=== PATIENT | female | born 1975 | race Hispanic/Latino ===

== ENCOUNTER → 2021-05-16 | Outpatient (CLI) | payer OTHER | END | disposition home or self-care (01) | LOC: RAH 12:34 | PROVIDERS: ATTEND Family Medicine | DX: M54.5 Low back pain (principal); R06.02 Shortness of breath | CPT/HCPCS: 71046; 72110 ==

== ENCOUNTER 2022-01-14 02:05 | Observation (INO) | payer BC ==
[~2022-01-14] VITALS: Ht 154.9 cm; Wt 68.6 kg
[2022-01-14 03:55] VITALS: BP 165/95
[2022-01-14] MEDS ORDERED: METF-446 PO (04:17)
[2022-01-14] MEDS ORDERED: ONDANSETRON 4MG INJ IVP PRN (05:00)
[2022-01-14] MEDS ORDERED: HYDRALAZINE 25MG TABLET PO SCH ×2 (05:00→09:00)
[2022-01-14] MEDS ORDERED: ACETAMINOPHEN 325 MG TAB PO PRN (05:00)
[2022-01-14] MEDS ORDERED: HYDRALAZINE 25MG TABLET ONE (05:04)
[2022-01-14] MEDS ORDERED: ACETAMINOPHEN 325 MG TAB ONE (05:05)
[2022-01-14] MEDS ORDERED: MORPHINE 2 MG SYG ONE (05:13)
[2022-01-14] MEDS ORDERED: MORPHINE 2 MG SYG IVP PRN (05:30)
[2022-01-14] MEDS ORDERED: GLUCAGON 1MG KIT 1 MG ML IM PRN (05:30)
[2022-01-14] MEDS ORDERED: DEXTROSE 50%-WATER 50 ML DISP.SYRIN IV PRN (05:30)
[2022-01-14 05:38] LABS: BASOPHILS % (AUTO) 1.2 % (0.0-5.0); EOSINOPHILS % (AUTO) 6.1 % (0.0-8.0); HEMATOCRIT 35.8 % (36-48); LYMPHOCYTES % (AUTO) 42.1 % (21.0-51.0); MEAN CORPUSCULAR HEMOGLOBIN 27.2 pg (27.0-33.0); MEAN CORPUSCULAR HGB CONC 33.2 g/dL (32.0-36.0); MEAN CORPUSCULAR VOLUME 81.7 fL (79-99); MONOCYTES % (AUTO) 5.2 % (3.0-13.0); NEUTROPHILS % (AUTO) 45.1 % (40.0-77.0); PLATELET COUNT (AUTO) 244 K/uL (130-400); RED BLOOD CELL COUNT(AUTO) 4.38 MIL/uL (4.00-5.50); RED CELL DISTRIBUTION WIDTH 14.6 % (11.0-15.5); WHITE BLOOD COUNT (AUTO) 7.4 K/uL (4.8-10.8)
[2022-01-14 05:54] LABS: CREATININE 0.6 mg/dL (0.5-1.5); POTASSIUM 3.2 mmol/L (3.5-5.1)
[2022-01-14 06:07] LABS: ALBUMIN 3.5 g/dL (3.5-5.0); BILIRUBIN,TOTAL 0.2 mg/dL (0.2-1.0); THYROID STIMULATING HORMONE 4.82 uIU/mL (0.36-3.74); TOTAL PROTEIN, SERUM 7.5 g/dL (6.0-8.3)
[2022-01-14] MEDS ORDERED: INSULIN HUMULIN R 100 UNIT/ML 3ML SQ SCH (07:30)
[2022-01-14 08:00] VITALS: BP 159/93
[2022-01-14] MEDS ORDERED: LISINOPRIL 10 MG TABLET PO SCH (09:00)
[2022-01-14] MEDS ORDERED: LISI10TA24 PO (09:38)
[2022-01-14] MEDS ORDERED: HYDR-4153 PO (09:38)
[2022-01-14] MEDS ORDERED: POTASSIUM CHLORIDE 10% ELIXIR 20 MEQ/15 ML UDCUP PO SCH (10:00)
[2022-01-14 12:00] VITALS: BP 171/94
== END 2022-01-14 13:45 | disposition home or self-care (01) ==
LOC: 4DH 03:56
PROVIDERS: ADMIT Internal Medicine; ATTEND Internal Medicine
DX: I16.0 Hypertensive urgency (principal); E11.65 Type 2 diabetes mellitus with hyperglycemia; R51.9 Headache, unspecified; Z79.84 Long term (current) use of oral hypoglycemic drugs
CPT/HCPCS: 36415; 70450; 80053; 83036; 84443; 84484 ×2; 85025; 96374; G0378 ×9; G0379

== ENCOUNTER → 2022-02-05 | Outpatient (CLI) | payer BC ==
[~2022-02-05] MED LIST: HYDR-4153 PO; LISI10TA24 PO; METF-446 PO
== END | disposition home or self-care (01) ==
LOC: RAH 11:27
PROVIDERS: ATTEND Family Medicine
DX: I10 Essential (primary) hypertension (principal)
CPT/HCPCS: 76770

== ENCOUNTER 2022-02-23 07:14 | Observation (INO) | payer BC ==
[~2022-02-23] VITALS: Ht 157.5 cm; Wt 65.8 kg
[2022-02-23] MEDS ORDERED: HYDRALAZINE 20MG/ML VIAL IV ONE ×2 (08:00→11:00)
[2022-02-23] MEDS ORDERED: LABETALOL 20MG SYG IV ONE (08:00)
[2022-02-23] MEDS ORDERED: ONDANSETRON 4MG INJ IVP ONE (08:00)
[2022-02-23] MEDS ORDERED: MORPHINE 4 MG SYG IVP ONE (08:00)
[2022-02-23 08:16] LABS: BASOPHILS % (AUTO) 1.3 % (0.0-5.0); EOSINOPHILS % (AUTO) 11.3 % (0.0-8.0); LYMPHOCYTES % (AUTO) 29.9 % (21.0-51.0); MEAN CORPUSCULAR HEMOGLOBIN 27.3 pg (27.0-33.0); MEAN CORPUSCULAR HGB CONC 31.9 g/dL (32.0-36.0); MEAN CORPUSCULAR VOLUME 85.5 fL (79-99); MONOCYTES % (AUTO) 4.1 % (3.0-13.0); NEUTROPHILS % (AUTO) 53.1 % (40.0-77.0); PLATELET COUNT (AUTO) 200 K/uL (130-400); RED BLOOD CELL COUNT(AUTO) 4.33 MIL/uL (4.00-5.50); RED CELL DISTRIBUTION WIDTH 16.1 % (11.0-15.5)
[2022-02-23 08:25] LABS: APPEARANCE,URINE Cloudy (CLEAR); BILIRUBIN,URINE Negative (NEGATIVE); COLOR,URINE Yellow (YELLOW); GLUCOSE, URINE (UA) Negative (NEGATIVE); KETONES,URINE Negative (NEGATIVE); LEUKOCYTE ESTERASE ,URINE Trace (NEGATIVE); NITRATE,URINE Negative (NEGATIVE); OCCULT BLOOD,URINE Negative (NEGATIVE); PROTEIN,URINE Negative (NEGATIVE); UROBILINOGEN,URINE 0.2 mg/dL (0.2-1.0)
[2022-02-23 08:32] LABS: ALBUMIN 3.1 g/dL (3.5-5.0); BILIRUBIN,TOTAL 0.2 mg/dL (0.2-1.0); CREATININE 0.5 mg/dL (0.5-1.5); TOTAL PROTEIN, SERUM 6.2 g/dL (6.0-8.3)
[2022-02-23 08:34] LABS: AMPHET/METH SCREEN,URINE NEGATIVE (NEGATIVE); BARBITURATE SCREEN, URINE POSITIVE (NEGATIVE); BENZODIAZEPINES SCREEN,URINE NEGATIVE (NEGATIVE); CANNABINOID SCREEN,URINE NEGATIVE (NEGATIVE); COCAINE SCREEN,URINE NEGATIVE (NEGATIVE); OPIATE SCREEN,URINE NEGATIVE (NEGATIVE); PHENCYCLIDINE SCREEN,URINE NEGATIVE (NEGATIVE)
[2022-02-23 08:54] LABS: BACTERIA,URINE Few /HPF (None Seen); RBC,URINE None Seen /HPF (0-1)
[2022-02-23] MEDS ORDERED: ORPHENADRINE CITRATE 30 MG/ML ML IVP SCH (09:00)
[2022-02-23] MEDS ORDERED: KETOROLAC 15MG/ML VIAL (15MG/ML) IV SCH (09:00)
[2022-02-23] MEDS ORDERED: ONDANSETRON 4MG INJ IVP PRN (14:30)
[2022-02-23] MEDS ORDERED: HYDRALAZINE 20MG/ML VIAL IV PRN (14:30)
[2022-02-23] MEDS: MORPHINE 2 MG SYG IVP PRN (14:45)
[2022-02-23] MEDS: FAMOTIDINE 20MG VIAL IV SCH (19:37)
[2022-02-23] MEDS: NIFEDIPINE ER 30 MG TAB PO SCH (19:37)
[2022-02-23] MEDS ORDERED: CYCLOBENZAPRINE HCL 10 MG TABLET PO ONE (19:45)
[2022-02-23] MEDS ORDERED: NIFEDIPINE ER 30 MG TAB PO SCH (21:00)
[2022-02-23 21:58] VITALS: BP 178/98
[2022-02-23 22:10] VITALS: BP 148/85
[2022-02-23] MEDS ORDERED: SIMV10TA97 PO (23:26)
[2022-02-23] MEDS ORDERED: LISI10TA24 PO (23:26)
[2022-02-23] MEDS ORDERED: IBUP-2070 PO (23:26)
[2022-02-23] MEDS ORDERED: HYDR-4153 PO (23:26)
[2022-02-24] MEDS: MORPHINE 2 MG SYG IVP PRN ×2 (03:21→09:40)
[2022-02-24 04:00] VITALS: BP 136/79
[2022-02-24 04:07] LABS: BASOPHILS % (AUTO) 1.5 % (0.0-5.0); EOSINOPHILS % (AUTO) 11.9 % (0.0-8.0); HEMATOCRIT 37.2 % (36-48); MEAN CORPUSCULAR HEMOGLOBIN 26.9 pg (27.0-33.0); MEAN CORPUSCULAR HGB CONC 31.2 g/dL (32.0-36.0); MEAN CORPUSCULAR VOLUME 86.1 fL (79-99); MONOCYTES % (AUTO) 4.6 % (3.0-13.0); NEUTROPHILS % (AUTO) 49.9 % (40.0-77.0); PLATELET COUNT (AUTO) 209 K/uL (130-400); RED BLOOD CELL COUNT(AUTO) 4.32 MIL/uL (4.00-5.50); RED CELL DISTRIBUTION WIDTH 16.1 % (11.0-15.5); WHITE BLOOD COUNT (AUTO) 8.1 K/uL (4.8-10.8)
[2022-02-24 04:28] LABS: ALBUMIN 3.1 g/dL (3.5-5.0); BILIRUBIN,TOTAL 0.3 mg/dL (0.2-1.0); CREATININE 0.6 mg/dL (0.5-1.5); MAGNESIUM 1.9 mg/dL (1.80-2.40); PHOSPHORUS 4.1 mg/dL (2.5-4.9); POTASSIUM 3.6 mmol/L (3.5-5.1); TOTAL PROTEIN, SERUM 6.2 g/dL (6.0-8.3)
[2022-02-24 08:00] VITALS: BP 124/69
[2022-02-24] MEDS: FAMOTIDINE 20MG VIAL IV SCH ×2 (08:57→20:28)
[2022-02-24] MEDS: ENOXAPARIN SODIUM 40 MG/0.4 ML SYRINGE SQ SCH (08:57)
[2022-02-24 12:00] VITALS: BP 128/77
[2022-02-24] MEDS ORDERED: MAGNESIUM CITRATE 296 ML SOLUTION PO SCH (12:30)
[2022-02-24] MEDS: NIFEDIPINE ER 30 MG TAB PO SCH (14:44)
[2022-02-24] MEDS: CYCLOBENZAPRINE HCL 10 MG TABLET PO SCH ×2 (14:44→20:29)
[2022-02-24 16:00] VITALS: BP 140/84
[2022-02-24 20:00] VITALS: BP 140/80
[2022-02-24] MEDS ORDERED: HYDROMORPHONE 0.5 MG SYG (0.5MG/0.5ML) IVP ONE (21:00)
[2022-02-25] VITALS (7 sets, daily range): BP systolic 117–151; BP diastolic 75–96
[2022-02-25 04:39] LABS: HEMATOCRIT 37.5 % (36-48); MEAN CORPUSCULAR HEMOGLOBIN 26.7 pg (27.0-33.0); MEAN CORPUSCULAR HGB CONC 31.2 g/dL (32.0-36.0); MEAN CORPUSCULAR VOLUME 85.4 fL (79-99); RED BLOOD CELL COUNT(AUTO) 4.39 MIL/uL (4.00-5.50); WHITE BLOOD COUNT (AUTO) 7.3 K/uL (4.8-10.8)
[2022-02-25 05:06] LABS: ALBUMIN 3.1 g/dL (3.5-5.0); BILIRUBIN,TOTAL 0.3 mg/dL (0.2-1.0); CREATININE 0.6 mg/dL (0.5-1.5); MAGNESIUM 2.2 mg/dL (1.80-2.40); POTASSIUM 4.4 mmol/L (3.5-5.1); TOTAL PROTEIN, SERUM 6.4 g/dL (6.0-8.3)
[2022-02-25] MEDS ORDERED: BUTA-256 PO (06:43)
[2022-02-25] MEDS ORDERED: SEMA2PEN SQ (06:43)
[2022-02-25] MEDS: CYCLOBENZAPRINE HCL 10 MG TABLET PO SCH ×3 (09:15→20:39)
[2022-02-25] MEDS: ENOXAPARIN SODIUM 40 MG/0.4 ML SYRINGE SQ SCH (09:16)
[2022-02-25] MEDS: FAMOTIDINE 20MG VIAL IV SCH ×2 (09:16→20:39)
[2022-02-25] MEDS ORDERED: IOHEXOL 350 MG/ML 100ML INFUS..BTL IV ONE (09:52)
[2022-02-25] MEDS: MORPHINE 2 MG SYG IVP PRN ×2 (10:20→20:39)
[2022-02-25] MEDS ORDERED: DIPHENHYDRAMINE 2% CREAM 30 GM TP PRN (13:00)
[2022-02-25] MEDS: NIFEDIPINE ER 30 MG TAB PO SCH (14:45)
[2022-02-26 04:00] VITALS: BP 123/82
[2022-02-26 07:20] VITALS: BP 140/90
[2022-02-26] MEDS: CYCLOBENZAPRINE HCL 10 MG TABLET PO SCH ×2 (08:13→13:29)
[2022-02-26] MEDS: FAMOTIDINE 20MG VIAL IV SCH (08:13)
[2022-02-26] MEDS: ENOXAPARIN SODIUM 40 MG/0.4 ML SYRINGE SQ SCH (08:13)
[2022-02-26] MEDS ORDERED: ASPIRIN 81 MG EC TAB PO SCH (09:00)
[2022-02-26] MEDS ORDERED: LACTULOSE 20 GM/30 ML UDCUP PO SCH (09:30)
[2022-02-26 09:36] LABS: CHOLESTEROL 279 mg/dL (<200); HDL CHOLESTEROL 52 mg/dL (35-85); LDL DIRECT 183 mg/dL (0-99); TRIGLYCERIDES 248 mg/dL (30-200)
[2022-02-26 12:22] VITALS: BP 146/86
[2022-02-26] MEDS: NIFEDIPINE ER 30 MG TAB PO SCH (13:29)
[2022-02-26] MEDS ORDERED: BISACODYL 10 MG SUPP.RECT RC SCH (14:00)
[2022-02-26] MEDS ORDERED: NIFE-40 PO (14:41)
[2022-02-26] MEDS ORDERED: CYCL-309 PO (14:41)
[2022-02-27] MEDS ORDERED: AEC81 PO (07:43)
[2022-03-10] MEDS ORDERED: ESCI5TAB16 PO (14:41)
[2022-03-10] MEDS ORDERED: METF-446 PO (14:41)
[2022-03-10] MEDS ORDERED: ASPI-1443 PO (14:41)
[2022-03-10] MEDS ORDERED: APAP PO (14:41)
[2022-03-10] MEDS ORDERED: SIMV10TA97 PO (14:41)
[2022-03-10] MEDS ORDERED: IBUP-2070 PO (14:41)
[2022-03-10] MEDS ORDERED: CYCL-309 PO (14:41)
[2022-03-10] MEDS ORDERED: BUTALBITAL PO (14:41)
[2022-03-10] MEDS ORDERED: [UNRECOGNIZED DRUG - OTHER] PO (14:41)
[2022-03-10] MEDS ORDERED: NIFE-40 PO (14:41)
[2022-03-10] MEDS ORDERED: ozempic SQ (14:41)
== END 2022-02-26 16:05 | disposition home or self-care (01) ==
LOC: EDH 07:14 → EDHIP 14:10 → 4BH 18:50
PROVIDERS: ADMIT Internal Medicine Critical Care Medicine; ATTEND Internal Medicine Critical Care Medicine
DX: I16.0 Hypertensive urgency (principal); R07.89 Other chest pain; R74.01 Elevation of levels of liver transaminase levels; I70.1 Atherosclerosis of renal artery; I45.4 Nonspecific intraventricular block; E88.09 Other disorders of plasma-protein metabolism, not elsewhere classified; K59.00 Constipation, unspecified; I10 Essential (primary) hypertension; E11.9 Type 2 diabetes mellitus without complications; I45.10 Unspecified right bundle-branch block; I25.119 Atherosclerotic heart disease of native coronary artery with unspecified angina pectoris; M54.9 Dorsalgia, unspecified; G43.909 Migraine, unspecified, not intractable, without status migrainosus; Z79.82 Long term (current) use of aspirin; Z79.84 Long term (current) use of oral hypoglycemic drugs; Z79.899 Other long term (current) drug therapy
CPT/HCPCS: 36415 ×4; 70450; 71275; 73020; 75574; 76770; 80053 ×3; 80061; 80305; 81001; 82948 ×9; 83735 ×2; 84100; 84484; 84703; 85025 ×2; 85027; 85378; 93005; 93306; 96372 ×3; 96374; 96375 ×2; 96376 ×4; 99285; G0378 ×71; J0360 ×3; J1170; J1650 ×3; J1885; J2270; J2360; J2405 ×2; J3490 ×6; Q9967

== ENCOUNTER → 2022-06-16 | Outpatient (CLI) | payer BC ==
[~2022-06-16] MED LIST changes: +ASPI-1443 PO; +ATOR40TA69 PO; +CYCL-309 PO; +ESCI5TAB16 PO; +FURO20TA6 PO; -HYDR-4153 PO; -LISI10TA24 PO; +METO25 PO; +ozempic SQ
== END | disposition home or self-care (01) ==
LOC: OIH 10:56
PROVIDERS: ATTEND Student in an Organized Health Care Education/Training Program
DX: I11.9 Hypertensive heart disease without heart failure (principal); E11.9 Type 2 diabetes mellitus without complications; E78.5 Hyperlipidemia, unspecified; Z95.1 Presence of aortocoronary bypass graft
CPT/HCPCS: 93306

== ENCOUNTER → 2022-09-09 | Outpatient (CLI) | payer BC | END | disposition home or self-care (01) | LOC: RAH 10:59 | PROVIDERS: ATTEND Family Medicine | DX: I11.9 Hypertensive heart disease without heart failure (principal); M47.815 Spondylosis without myelopathy or radiculopathy, thoracolumbar region | CPT/HCPCS: 71046 ==

== ENCOUNTER 2022-09-29 07:00 | Day surgery (SDC) | payer BC ==
[2022-09-23 09:58] LABS: BASOPHILS % (AUTO) 1.3 % (0.0-5.0); EOSINOPHILS % (AUTO) 4.8 % (0.0-8.0); LYMPHOCYTES % (AUTO) 35.8 % (21.0-51.0); MEAN CORPUSCULAR HEMOGLOBIN 27.8 pg (27.0-33.0); MEAN CORPUSCULAR HGB CONC 32.2 g/dL (32.0-36.0); MEAN CORPUSCULAR VOLUME 86.3 fL (79-99); MONOCYTES % (AUTO) 3.9 % (3.0-13.0); NEUTROPHILS % (AUTO) 53.9 % (40.0-77.0); PLATELET COUNT (AUTO) 267 K/uL (130-400); RED BLOOD CELL COUNT(AUTO) 4.75 MIL/uL (4.00-5.50); WHITE BLOOD COUNT (AUTO) 6.7 K/uL (4.8-10.8)
[2022-09-23 10:05] LABS: CREATININE 0.7 mg/dL (0.5-1.5); POTASSIUM 3.5 mmol/L (3.5-5.1)
[2022-09-23 10:13] LABS: INR 0.93 (0.85-1.15); PROTHROMBIN TIME 10.2 SEC (9.6-11.6)
[2022-09-23 10:14] LABS: PARTIAL THROMBOPLASTIN TIME 26.8 SEC (26.3-35.5)
[2022-09-23 10:33] LABS: B-TYPE NATRIURETIC PEPTIDE 33 pg/mL (0-100)
[2022-09-23 10:38] LABS: APPEARANCE,URINE CLEAR (CLEAR); BILIRUBIN,URINE NEGATIVE (NEGATIVE); COLOR,URINE LIGHT-YELLOW (YELLOW); GLUCOSE, URINE (UA) NEGATIVE (NEGATIVE); KETONES,URINE NEGATIVE (NEGATIVE); LEUKOCYTE ESTERASE ,URINE NEGATIVE Leu/uL (NEGATIVE); NITRATE,URINE NEGATIVE (NEGATIVE); OCCULT BLOOD,URINE NEGATIVE (NEGATIVE); PH,URINE 5.5 (5.0-8.0); PROTEIN,URINE NEGATIVE (NEGATIVE); UROBILINOGEN,URINE 0.2 mg/dL (0.2-1.0)
[2022-09-24 09:45] VITALS: BP 120/81
[~2022-09-29] VITALS: Ht 157.5 cm; Wt 65.0 kg
[2022-09-29] VITALS (12 sets, daily range): BP systolic 118–151; BP diastolic 75–90
[~2022-09-29 07:00] MED LIST changes: +ACET-2247 PO; -CYCL-309 PO; +DOCU100T PO; +ESCI-8 PO; -ESCI5TAB16 PO; +FURO20TA4 PO; -FURO20TA6 PO; +META-25 PO; +METO-408 PO; -METO25 PO
[2022-09-29] MEDS ORDERED: 0.9%NACL 1000ML 1,000 ML IV ONE (07:15)
[2022-09-29] MEDS ORDERED: HEPARIN 10,000 UNIT/10ML (1,000 UNIT/ML) VIAL ONE (07:51)
[2022-09-29] MEDS ORDERED: VERAPAMIL HCL 2.5 MG/ML VIAL ONE (07:51)
[2022-09-29] MEDS ORDERED: IOHEXOL 350 MG/ML 100ML INFUS..BTL IV ONE ×2 (07:51→09:21)
[2022-09-29] MEDS ORDERED: LIDOCAINE HCL 1% 20 ML VIAL ONE (07:51)
[2022-09-29] MEDS ORDERED: NITROGLYCERIN 50MG VIAL ONE (07:51)
[2022-09-29] MEDS ORDERED: FENTANYL CITRATE PF 50 MCG/1 ML 2ML VIAL ONE (07:52)
[2022-09-29] MEDS ORDERED: MIDAZOLAM HCL 1 MG/ML 2ML VIAL ONE ×2 (07:52→08:38)
[2022-09-29] MEDS ORDERED: DiphenhydrAMINE HCL 50 MG/ML VIAL ONE ×2 (08:22→09:11)
[2022-09-29] MEDS ORDERED: 0.9%NACL 1000ML 1,000 ML IV SCH (10:00)
[2022-09-29] MEDS ORDERED: GLUCAGON 1MG KIT 1 MG ML IM PRN (10:00)
[2022-09-29] MEDS ORDERED: DEXTROSE 50%-WATER 50 ML DISP.SYRIN IV PRN (10:00)
== END 2022-09-29 15:55 | disposition home or self-care (01) ==
LOC: DAH 07:00
PROVIDERS: ATTEND Student in an Organized Health Care Education/Training Program
DX: I25.110 Atherosclerotic heart disease of native coronary artery with unstable angina pectoris (principal); I11.0 Hypertensive heart disease with heart failure; I50.32 Chronic diastolic (congestive) heart failure; I45.10 Unspecified right bundle-branch block; E11.9 Type 2 diabetes mellitus without complications; E78.2 Mixed hyperlipidemia; I25.2 Old myocardial infarction; Z79.84 Long term (current) use of oral hypoglycemic drugs; Z79.82 Long term (current) use of aspirin; Z83.3 Family history of diabetes mellitus; Z82.49 Family history of ischemic heart disease and other diseases of the circulatory system; Z79.899 Other long term (current) drug therapy
CPT/HCPCS: 80048; 83880; 84703; 85025; 85610; 85730; 81003; 36415; 71045; 93005; 93459; 82948 ×2; C1769; C1894 ×3; C1760; C1887 ×2; J1200 ×2; J3010; J7030; J1644 ×3; J2250 ×2; J3490; Q9967 ×2; A4215; A4222; A4221; A4663; A4216; A4606; Q9965 ×3; A4223 ×3; 96360; 96361; 99156; 99157

== ENCOUNTER 2022-11-17 21:30 | Emergency (ER) | payer BC ==
[~2022-11-17] VITALS: Ht 154.9 cm; Wt 64.9 kg
[~2022-11-17 21:30] MED LIST changes: -METO-408 PO
[2022-11-17 21:50] VITALS: BP 136/89
[2022-11-17] MEDS ORDERED: IBUPROFEN 600 MG TABLET PO ONE (23:00)
[2022-11-17 23:36] LABS: BASOPHILS % (AUTO) 0.6 % (0.0-5.0); EOSINOPHILS % (AUTO) 2.7 % (0.0-8.0); LYMPHOCYTES % (AUTO) 10.2 % (21.0-51.0); MEAN CORPUSCULAR HEMOGLOBIN 30.3 pg (27.0-33.0); MEAN CORPUSCULAR HGB CONC 33.6 g/dL (32.0-36.0); MEAN CORPUSCULAR VOLUME 90.3 fL (79-99); MONOCYTES % (AUTO) 5.8 % (3.0-13.0); NEUTROPHILS % (AUTO) 80.4 % (40.0-77.0); PLATELET COUNT (AUTO) 184 K/uL (130-400); RED BLOOD CELL COUNT(AUTO) 4.32 MIL/uL (4.00-5.50); RED CELL DISTRIBUTION WIDTH 15.1 % (11.0-15.5); WHITE BLOOD COUNT (AUTO) 7.7 K/uL (4.8-10.8)
[2022-11-17 23:49] LABS: ALBUMIN 3.9 g/dL (3.5-5.0); CREATININE 0.9 mg/dL (0.5-1.5); POTASSIUM 3.5 mmol/L (3.5-5.1)
[2022-11-17] MEDS ORDERED: ACET-66 PO (23:50)
[2022-11-17] MEDS ORDERED: NIRM1TAB5 PO (23:50)
[2022-11-17] MEDS ORDERED: ONDA4TAB10 PO (23:50)
[2022-11-17] MEDS ORDERED: GUAIF10 PO (23:50)
[2022-11-18] MEDS ORDERED: ONDANSETRON 4MG INJ IVP ONE
[2022-11-18] MEDS ORDERED: 0.9%NACL 1000ML 1,000 ML IV ONE
[2022-11-18] MEDS ORDERED: FAMOTIDINE 20MG VIAL IV ONE
== END 2022-11-18 00:51 | disposition home or self-care (01) ==
LOC: EDH 21:30
DX: U07.1 COVID-19 (principal); F41.9 Anxiety disorder, unspecified; I10 Essential (primary) hypertension; E11.9 Type 2 diabetes mellitus without complications; E78.00 Pure hypercholesterolemia, unspecified; Z79.899 Other long term (current) drug therapy; Z98.890 Other specified postprocedural states; Z79.82 Long term (current) use of aspirin; Z79.84 Long term (current) use of oral hypoglycemic drugs
CPT/HCPCS: 99284; 71045; 87635; 80053; 85025; 87880; 87804 ×2; 36415; 96374; 96361; 96375; C9803; J3490; J7030; J2405

== ENCOUNTER 2022-11-21 12:08 | Emergency (ER) | payer BC ==
[~2022-11-21] VITALS: Ht 154.9 cm; Wt 64.0 kg
[~2022-11-21 12:08] MED LIST changes: +ACET-66 PO; +GUAIF10 PO; +NIRM1TAB5 PO; +ONDA4TAB10 PO
[2022-11-21 13:03] LABS: APPEARANCE,URINE CLOUDY (CLEAR); BILIRUBIN,URINE NEGATIVE (NEGATIVE); COLOR,URINE YELLOW (YELLOW); GLUCOSE, URINE (UA) NEGATIVE (NEGATIVE); KETONES,URINE NEGATIVE (NEGATIVE); LEUKOCYTE ESTERASE ,URINE 25 Leu/uL (NEGATIVE); NITRATE,URINE NEGATIVE (NEGATIVE); OCCULT BLOOD,URINE LARGE (NEGATIVE); PROTEIN,URINE NEGATIVE (NEGATIVE); UROBILINOGEN,URINE 0.2 mg/dL (0.2-1.0)
[2022-11-21 13:05] LABS: HCG,QUALITATIVE URINE NEGATIVE (NEGATIVE)
[2022-11-21 13:12] LABS: BASOPHILS % (AUTO) 0.6 % (0.0-5.0); EOSINOPHILS % (AUTO) 8.1 % (0.0-8.0); HEMATOCRIT 40.6 % (36-48); LYMPHOCYTES % (AUTO) 41.5 % (21.0-51.0); MEAN CORPUSCULAR HEMOGLOBIN 30.6 pg (27.0-33.0); MEAN CORPUSCULAR HGB CONC 32.8 g/dL (32.0-36.0); MEAN CORPUSCULAR VOLUME 93.5 fL (79-99); MONOCYTES % (AUTO) 3.5 % (3.0-13.0); NEUTROPHILS % (AUTO) 46.1 % (40.0-77.0); PLATELET COUNT (AUTO) 205 K/uL (130-400); RED BLOOD CELL COUNT(AUTO) 4.34 MIL/uL (4.00-5.50); RED CELL DISTRIBUTION WIDTH 14.9 % (11.0-15.5); WHITE BLOOD COUNT (AUTO) 5.1 K/uL (4.8-10.8)
[2022-11-21 13:21] LABS: CREATININE 0.9 mg/dL (0.5-1.5); POTASSIUM 3.5 mmol/L (3.5-5.1)
[2022-11-21 13:25] LABS: ALBUMIN 3.6 g/dL (3.5-5.0); TOTAL PROTEIN, SERUM 8.1 g/dL (6.0-8.3)
[2022-11-21 14:06] LABS: BACTERIA,URINE RARE /HPF (None Seen); RBC,URINE 0-1 /HPF (0-1); SQUAMOUS EPITHELIAL CELL,UR FEW /HPF (0-2)
[2022-11-21] MEDS ORDERED: 0.9%NACL 1000ML 1,000 ML IV ONE (15:30)
[2022-11-21] MEDS ORDERED: KETOROLAC 15MG/ML VIAL (15MG/ML) IV ONE (15:30)
[2022-11-21] MEDS ORDERED: DICL75TA5 PO ×2 (16:27→16:42)
[2022-11-21 16:31] VITALS: BP 124/72
== END 2022-11-21 16:53 | disposition home or self-care (01) ==
LOC: EDH 12:08
DX: R31.9 Hematuria, unspecified (principal); R10.32 Left lower quadrant pain; I10 Essential (primary) hypertension; E11.9 Type 2 diabetes mellitus without complications; E78.00 Pure hypercholesterolemia, unspecified; Z79.82 Long term (current) use of aspirin; Z79.899 Other long term (current) drug therapy
CPT/HCPCS: 99284; 74176; 96374; 71045; 96361; 84484; 80053; 83690; 85025; 81001; 81025; 36415; 93005; J7030; J1885

== ENCOUNTER → 2023-01-15 | Outpatient (CLI) | payer BC ==
[~2023-01-15] MED LIST changes: +DICL75TA5 PO
[2023-01-15 12:17] LABS: CHOLESTEROL 162 mg/dL (<200); HDL CHOLESTEROL 52 mg/dL (35-85); LDL DIRECT 91 mg/dL (0-99); TRIGLYCERIDES 126 mg/dL (30-200)
== END | disposition home or self-care (01) ==
LOC: LAB 10:40
PROVIDERS: ATTEND Student in an Organized Health Care Education/Training Program
DX: E78.2 Mixed hyperlipidemia (principal)
CPT/HCPCS: 36415; 80061

== ENCOUNTER → 2023-01-21 | Outpatient (CLI) | payer BC | END | disposition home or self-care (01) | LOC: RAH 09:17 | PROVIDERS: ATTEND Family Medicine | DX: Z12.31 Encounter for screening mammogram for malignant neoplasm of breast (principal) | CPT/HCPCS: 77067 ==

== ENCOUNTER → 2023-02-09 | Outpatient (CLI) | payer BC | END | disposition home or self-care (01) | LOC: RAH 09:15 | PROVIDERS: ATTEND Family Medicine | DX: R10.9 Unspecified abdominal pain (principal) | CPT/HCPCS: 76700 ==

== ENCOUNTER → 2023-02-12 | Outpatient (CLI) | payer BC ==
[2023-02-12 15:27] LABS: BASOPHILS % (AUTO) 1.6 % (0.0-5.0); EOSINOPHILS % (AUTO) 7.1 % (0.0-8.0); LYMPHOCYTES % (AUTO) 31.8 % (21.0-51.0); MEAN CORPUSCULAR HEMOGLOBIN 31.8 pg (27.0-33.0); MEAN CORPUSCULAR HGB CONC 32.5 g/dL (32.0-36.0); MEAN CORPUSCULAR VOLUME 97.8 fL (79-99); MONOCYTES % (AUTO) 4.7 % (3.0-13.0); NEUTROPHILS % (AUTO) 54.7 % (40.0-77.0); PLATELET COUNT (AUTO) 230 K/uL (130-400); RED CELL DISTRIBUTION WIDTH 12.1 % (11.0-15.5); WHITE BLOOD COUNT (AUTO) 7.4 K/uL (4.8-10.8)
[2023-02-12 15:39] LABS: ALBUMIN 4.2 g/dL (3.5-5.0); CREATININE 0.9 mg/dL (0.5-1.5); POTASSIUM 3.5 mmol/L (3.5-5.1); THYROID STIMULATING HORMONE 0.97 uIU/mL (0.36-3.74); TOTAL PROTEIN, SERUM 8.4 g/dL (6.0-8.3)
== END | disposition home or self-care (01) ==
LOC: LAB 13:40
PROVIDERS: ATTEND Student in an Organized Health Care Education/Training Program
DX: I11.9 Hypertensive heart disease without heart failure (principal); D50.9 Iron deficiency anemia, unspecified; E11.65 Type 2 diabetes mellitus with hyperglycemia; F32.1 Major depressive disorder, single episode, moderate; E78.2 Mixed hyperlipidemia
CPT/HCPCS: 36415; 80053; 80061; 84443; 85025

== ENCOUNTER 2023-10-05 07:24 | Emergency (ER) | payer OTHER ==
[~2023-10-05] VITALS: Ht 154.9 cm; Wt 62.6 kg
[2023-10-05 08:02] LABS: RAPID GROUP A STREP negative (NEGATIVE)
[2023-10-05 08:07] LABS: SARS-CoV-2, RNA, NAAT NEGATIVE SARS CoV-2 (NEGATIVE)
[2023-10-05 08:12] LABS: INFLUENZA TYPE A Negative For Type A (NEGATIVE); INFLUENZA TYPE B Negative For Type B (NEGATIVE)
[2023-10-05] MEDS ORDERED: IBUPROFEN 600 MG TABLET PO ONE (09:30)
[2023-10-05] MEDS ORDERED: GUAIFENESIN/DEXTROMETHORPHAN 1 EACH TAB.SR.12H PO ONE (09:30)
[2023-10-05] MEDS ORDERED: DEXAMETHASONE SOD PHOSPHATE 4 MG/ML 1ML VIAL IM ONE (09:30)
[2023-10-05 09:46] LABS: BASOPHILS # (AUTO) 0.08 K/uL (0.00-0.20); BASOPHILS % (AUTO) 0.7 % (0.0-5.0); EOSINOPHILS # (AUTO) 0.25 K/uL (0.00-0.70); EOSINOPHILS % (AUTO) 2.3 % (0.0-8.0); HEMATOCRIT 38.3 % (36-48); IMMATURE GRANULOCYTE ABSOLUTE 0.05 K/uL (0-1); LYMPHOCYTES # (AUTO) 1.7 K/uL (1.0-4.8); LYMPHOCYTES % (AUTO) 15.7 % (21.0-51.0); MEAN CORPUSCULAR HGB CONC 33.4 g/dL (32.0-36.0); MEAN CORPUSCULAR VOLUME 92.7 fL (79-99); MONOCYTES # (AUTO) 0.5 K/uL (0.1-1.0); MONOCYTES % (AUTO) 4.5 % (3.0-13.0); NEUTROPHILS # (AUTO) 8.4 K/uL (1.8-7.7); NEUTROPHILS % (AUTO) 76.3 % (40.0-77.0); PLATELET COUNT (AUTO) 185 K/uL (130-400); RED BLOOD CELL COUNT(AUTO) 4.13 MIL/uL (4.00-5.50); RED CELL DISTRIBUTION WIDTH 13.1 % (11.0-15.5); WHITE BLOOD COUNT (AUTO) 11.1 K/uL (4.8-10.8)
[2023-10-05 09:55] LABS: CREATININE 0.7 mg/dL (0.5-1.5); POTASSIUM 3.4 mmol/L (3.5-5.1)
[2023-10-05 10:00] LABS: ALBUMIN 3.5 g/dL (3.5-5.0); BILIRUBIN,TOTAL 0.7 mg/dL (0.2-1.0); TOTAL PROTEIN, SERUM 7.8 g/dL (6.0-8.3)
[2023-10-05] MEDS ORDERED: POTASSIUM BICARB/CIT AC 25 MEQ TABLET.EFF PO ONE (11:00)
[2023-10-05] MEDS ORDERED: BENZ-39 PO (12:04)
[2023-10-05] MEDS ORDERED: IBUP-2070 PO (12:04)
[2023-10-05 12:16] VITALS: BP 131/88; PULSE 81; RESP 16; O2SAT 98
[2023-10-05] MEDS ORDERED: ACETAMINOPHEN 325 MG TAB PO ONE (12:30)
== END 2023-10-05 12:15 | disposition home or self-care (01) ==
LOC: EDH 07:24
DX: J06.9 Acute upper respiratory infection, unspecified (principal); R05.9 Cough, unspecified; R09.81 Nasal congestion; J02.9 Acute pharyngitis, unspecified; R51.9 Headache, unspecified; R74.8 Abnormal levels of other serum enzymes; E87.6 Hypokalemia; E11.65 Type 2 diabetes mellitus with hyperglycemia; E78.00 Pure hypercholesterolemia, unspecified; F41.9 Anxiety disorder, unspecified; I10 Essential (primary) hypertension; Z79.82 Long term (current) use of aspirin; Z95.1 Presence of aortocoronary bypass graft; Z20.822 Contact with and (suspected) exposure to COVID-19
CPT/HCPCS: 99284; 71045; 87635; 80053; 83690; 85025; 87880; 86308; 87804 ×2; 36415; 96372; J1100

== ENCOUNTER 2024-04-29 19:29 | Emergency (ER) | payer OTHER, SELFPAY ==
[~2024-04-29] VITALS: Ht 154.9 cm; Wt 63.5 kg
[~2024-04-29 19:29] MED LIST changes: +BENZ-39 PO; +IBUP-2070 PO; +ONDA-243 PO; -ONDA4TAB10 PO
[2024-04-29 20:21] LABS: HCG,QUALITATIVE URINE NEGATIVE (NEGATIVE)
[2024-04-29 20:22] LABS: APPEARANCE,URINE CLEAR (CLEAR); BILIRUBIN,URINE NEGATIVE (NEGATIVE); COLOR,URINE LIGHT-YELLOW (YELLOW); GLUCOSE, URINE (UA) >=1000 mg/dL (NEGATIVE); KETONES,URINE NEGATIVE (NEGATIVE); LEUKOCYTE ESTERASE ,URINE 25 Leu/uL (NEGATIVE); NITRATE,URINE NEGATIVE (NEGATIVE); OCCULT BLOOD,URINE NEGATIVE (NEGATIVE); PH,URINE 5.5 (5.0-8.0); PROTEIN,URINE NEGATIVE (NEGATIVE); UROBILINOGEN,URINE 0.2 mg/dL (0.2-1.0)
[2024-04-29 20:25] LABS: ADD UA MICROSCOPIC YES
[2024-04-29 20:26] LABS: BACTERIA,URINE RARE /HPF (None Seen); SQUAMOUS EPITHELIAL CELL,UR FEW /HPF (0-2)
[2024-04-29 20:51] LABS: BASOPHILS # (AUTO) 0.07 K/uL (0.00-0.20); BASOPHILS % (AUTO) 0.7 % (0.0-5.0); EOSINOPHILS # (AUTO) 0.44 K/uL (0.00-0.70); EOSINOPHILS % (AUTO) 4.6 % (0.0-8.0); HEMATOCRIT 44.1 % (36-48); IMMATURE GRANULOCYTE ABSOLUTE 0.01 K/uL (0-1); LYMPHOCYTES # (AUTO) 2.3 K/uL (1.0-4.8); LYMPHOCYTES % (AUTO) 23.8 % (21.0-51.0); MEAN CORPUSCULAR HEMOGLOBIN 31.9 pg (27.0-33.0); MEAN CORPUSCULAR HGB CONC 34.2 g/dL (32.0-36.0); MONOCYTES # (AUTO) 0.4 K/uL (0.1-1.0); NEUTROPHILS # (AUTO) 6.4 K/uL (1.8-7.7); NEUTROPHILS % (AUTO) 66.8 % (40.0-77.0); PLATELET COUNT (AUTO) 236 K/uL (130-400); RED BLOOD CELL COUNT(AUTO) 4.74 MIL/uL (4.00-5.50); RED CELL DISTRIBUTION WIDTH 11.9 % (11.0-15.5); WHITE BLOOD COUNT (AUTO) 9.5 K/uL (4.8-10.8)
[2024-04-29] MEDS: ONDANSETRON ODT 4MG TAB SL ONE (20:53)
[2024-04-29] MEDS: CEFTRIAXONE 1G VIAL IM ONE (20:53)
[2024-04-29] MEDS: KETOROLAC 30MG VIAL (30MG/ML) IM ONE (21:06)
[2024-04-29 21:19] LABS: SARS-CoV-2, RNA, NAAT NEGATIVE SARS CoV-2 (NEGATIVE)
[2024-04-29 21:22] LABS: INFLUENZA TYPE A Negative For Type A (NEGATIVE)
[2024-04-29 21:30] LABS: INFLUENZA TYPE B Positive For Type B (NEGATIVE)
[2024-04-29 21:45] LABS: CREATININE 0.7 mg/dL (0.5-1.0); POTASSIUM 3.1 mmol/L (3.5-5.1)
[2024-04-29] MEDS ORDERED: MUPI22O TP (21:45)
[2024-04-29] MEDS ORDERED: OSEL75 PO (21:45)
[2024-04-29] MEDS ORDERED: AZIT250T9 PO (21:45)
[2024-04-29] MEDS: AZITHROMYCIN 250 MG TABLET PO ONE (22:12)
[2024-04-29] MEDS: OSELTAMIVIR PHOSPHATE 75 MG CAP PO ONE (22:12)
[2024-04-29] MEDS: KCL 20 MEQ ERTAB PO ONE (22:13)
[2024-04-29 22:27] VITALS: BP 137/68; PULSE 71; RESP 20; O2SAT 99
== END 2024-04-29 22:29 | disposition home or self-care (01) ==
LOC: EDH 19:29
DX: J10.1 Influenza due to other identified influenza virus with other respiratory manifestations (principal); J32.9 Chronic sinusitis, unspecified; N39.0 Urinary tract infection, site not specified; I10 Essential (primary) hypertension; E11.9 Type 2 diabetes mellitus without complications; E78.00 Pure hypercholesterolemia, unspecified; F41.9 Anxiety disorder, unspecified; Z20.822 Contact with and (suspected) exposure to COVID-19; Z79.82 Long term (current) use of aspirin; Z79.84 Long term (current) use of oral hypoglycemic drugs; Z79.899 Other long term (current) drug therapy; Z98.890 Other specified postprocedural states; Z95.1 Presence of aortocoronary bypass graft
CPT/HCPCS: 99284; 87635; 80048; 85025; 87086; 87804 ×2; 83605; 81001; 81025; 36415; 96372 ×2; J0696; J1885